=== PATIENT | male | born 1970 | race Caucasian/White ===

== ENCOUNTER 2018-01-07 11:40 | Emergency (ER) | payer BC ==
[2018-01-07 12:07] VITALS: BP 132/62
--- NOTE | 2018-01-07 13:23 | UC ---
Lower Extremity/Ankle HPI - HPI Summary HPI Summary: Pt presents with 3day progressive right great toe pain. pt states has had intermittent ankle pain, pt with great toe pain once pregiously. pt states pain with gentle touch, walking. Pt took Motrin with mild improvement. No fever, chills. No rash. No fever, chills. No trauma. no open wounds. No other compplaints. Pt's medications reviewed this visit - History of Current Complaint Chief Complaint: UCLowerExtremity Stated Complaint: RIGHT FOOT COMPLAINT Time Seen by Provider: 01/07/18 13:15 Hx Obtained From: Patient Onset/Duration: Gradual Onset Severity Initially: Mild Severity Currently: Moderate Pain Intensity: 7 - Allergies/Home Medications Allergies/Adverse Reactions: Allergies Allergy/AdvReac Type Severity Reaction Status Date / Time seasonal Allergy Eyes Uncoded 01/07/18 12:07 Itchy/Swollen/Red/Watery Home Medications: Home Medications Ibuprofen TAB* [Motrin TAB* 800 MG] 800 mg PO Q6H PRN 01/07/18 [History Confirmed 01/07/18] Lisinopril/Hydrochlorothiazide [Zestoretic 20-25 mg-] 1 tab PO DAILY 01/07/18 [ History Confirmed 01/07/18] Loratadine [Claritin 10 MG CAP] 10 mg PO DAILY 01/07/18 [History Confirmed 01/07] PMH/Surg Hx/FS Hx/Imm Hx Previously Healthy: Yes - Surgical History Surgical History: Yes Surgery Procedure, Year, and Place: R hernia repair groin. R ankle fx - Family History Known Family History: Positive: Other - non contributory - Social History Occupation: Employed Full-time Lives: With Family Alcohol Use: Weekly Alcohol Amount: 10-12 Substance Use Type: None Smoking Status (MU): Never Smoked Tobacco Review of Systems Constitutional: Negative Musculoskeletal: Other: - right great toe All Other Systems Reviewed And Are Negative: Yes Physical Exam - Summary Physical Exam Summary: Vital Signs Reviewed: Yes A+Ox3, no distress Eyes: Conjunctiva Clear ENT: Hearing grossly normal neck: supple Respiratory: Positive: No respiratory distress, No accessory muscle use Cardiovascular: skin color reflect adequate perfusion 2+ DP, PT CBT < 2 sec Musculoskeletal Exam: No pain c/t/l/s + flex/ext knee, ankle no pain achilles, tarsals + TTP right great MCP with gentle palpation and movement. Neurological: Positive: Alert, ambulatory without difficulty + gross sensation throughout foot Psychological: Positive: Normal Response To Family Skin: Positive: no rash, no ecchymosis mild erythema and edema right great MCP miimal warmth no red streak Triage Information Reviewed: Yes Vital Signs: Initial Vital Signs Temp 98 F 01/07/18 11:57 Pulse 72 01/07/18 11:57 Resp 18 01/07/18 11:57 BP 132/62 01/07/18 11:57 Pulse Ox 98 01/07/18 11:57 Lower Extremity Course/Dx - Course Course Of Treatment: The enrollee present with progressive right great MCP pain. Pt with mild erythema and edema. Pt with tenderness with genlt palpation. no fluctuance CSM intact. exam and sx c/w gout. Will start pred, indomethacin. PCP f/u. return precautions. crutches. labs. work note - Differential Dx/Diagnosis Provider Diagnoses: gout flare Discharge - Sign-Out/Discharge Documenting (check all that apply): Patient Departure All imaging exams completed and their final reports reviewed: Yes - Discharge Plan Condition: Stable Disposition: HOME Prescriptions: Indomethacin CAP* [Indocin CAP*] 50 mg PO TID PRN #21 cap PRN Reason: foot pain predniSONE [Prednisone 20 MG TAB] 40 mg PO DAILY #8 tablet Patient Education Materials: Low Purine Diet (ED), Gout (ED) Forms: *Work Release Referrals: Chandana Alvarenga MD [Primary Care Provider] - Additional Instructions: - Take indomethacin 3 times a day as prescribed for pain . Take with food. Do NOT take ibuprofen (Advil, Motrin) while taking this medication - Take tylenol every 6 horus for pain - Take prednisone daily as prescribed. Take with food - Use crutches if to help you with walking - It is recommended you use if you are walking with a limp - Elevate your foot to help with swelling and pain - You had blood drawn today - these results will take 1-2 days to come back A member of our care team will call you with abdominal results - Billing Disposition and Condition Condition: STABLE Disposition: Home
[2018-01-07] MEDS ORDERED: predniSONE TAB* 20 MG PO ONE (13:40)
[2018-01-07] MEDS ORDERED: Indomethacin CAP* 25 MG CAP PO ONE (13:40)
[2018-01-07 19:27] LABS: Uric Acid 6.5 mg/dL (4.4-7.6)
== END 2018-01-07 14:07 | disposition home or self-care (01) ==
LOC: UCCORT 11:40
DX: M10.071 Idiopathic gout, right ankle and foot (principal)
CPT/HCPCS: 36415; 80048; 84550; 99203; A9270-GY; G0463; J7512

== ENCOUNTER 2018-12-28 10:29 | Emergency (ER) | payer BC ==
[2018-12-28] MEDS ORDERED: Morphine 4 MG/ML VIAL (1 ml) 4 MG/ML VIAL IV ONE (12:15)
[2018-12-28] MEDS ORDERED: diPHENhydraMINE IV* 50 MG/ML 1 ml VIAL (BENADRYL) IV ONE (12:15)
[2018-12-28] MEDS ORDERED: NS 0.9% 1000 ML** 1,000 ML IV ONE (12:15)
[2018-12-28] MEDS ORDERED: Metoclopramide IV* 5 MG/ML 2 ML VIAL IV ONE (12:15)
--- NOTE | 2018-12-28 12:16 | ED ---
Headache - HPI Summary HPI Summary: The patient is a 48 y/o M presenting to [facility] accompanied by with a chief complaint of headache with visual changes worsening over the last week. He reports that hes had headaches for years, but recently they have been lasting for 3-4 hours and are primarily located in either the occipital or frontal head. He is also now experiencing squiggly lines and blurred vision. Currently , his symptoms are rated 7/10 in severity. He has not seen an aba therapist, but he does not have a history of wearing glasses. PMHx: HTN, kidney infarction , kidney stones. FHx: HTN, HLD, kidney stones. Nonsmoker, weekly EtOH, no substance use. Medications reviewed. Allergies noted. - History Of Current Complaint Chief Complaint: EDHeadache Stated Complaint: SQUIGGLY LINES IN VISION/HEADACHE/DIZZY PER PT Time Seen by Provider: 12/28/18 12:07 Hx Obtained From: Patient Onset/Duration: Gradual Onset, Started hours ago, Still Present Initially Headache Was: Moderate Currently Pain Is: Current Pain Scale(0-10)= - 7 Timing: Hours - 3-4 Character: Throbbing Location of Headache: Frontal, Occipital Aggravating Factor: Nothing Allevating Factors: Nothing Associated Signs And Symptoms: Visual Changes - blurred vision, "squiggly lines " - Allergies/Home Medications Allergies/Adverse Reactions: Allergies Allergy/AdvReac Type Severity Reaction Status Date / Time seasonal Allergy Eyes Uncoded 04/26/18 15:56 Itchy/Swollen/Red/Watery PMH/Surg Hx/FS Hx/Imm Hx Endocrine/Hematology History: Denies: Hx Diabetes, Hx Thyroid Disease Cardiovascular History: Reports: Hx Hypertension Denies: Hx Hypercholesterolemia Respiratory History: Denies: Hx Asthma, Hx Chronic Obstructive Pulmonary Disease (COPD) GI History: Denies: Hx Ulcer History: Reports: Hx Kidney Stones, Hx Renal Disease - R renal infarct - Surgical History Surgical History: Yes Surgery Procedure, Year, and Place: R hernia repair groin. R ankle fx Infectious Disease History: No Infectious Disease History: Denies: Hx Hepatitis, Hx Human Immunodeficiency Virus (HIV), Traveled Outside the [place] in Last 30 Days - Family History Known Family History: Positive: Hypertension, Other - HLD, kidney stones - Social History Alcohol Use: Weekly Alcohol Amount: 10-12 Hx Substance Use: No Substance Use Type: Reports: None Hx Tobacco Use: No Smoking Status (MU): Never Smoked Tobacco Review of Systems Positive: Blurred Vision - with "squiggly lines" Positive: Headache - occipital, frontal All Other Systems Reviewed And Are Negative: Yes Physical Exam - Summary Physical Exam Summary: VITAL SIGNS: Reviewed. GENERAL: Patient is a well-developed and nourished male who is lying comfortable in the stretcher. Patient is not in any acute respiratory distress. HEAD AND FACE: No signs of trauma. No ecchymosis, hematomas or skull depressions. No sinus tenderness. EYES: PERRLA, EOMI x 2, No injected conjunctiva, no nystagmus. Visual acuity 20/ 20 bilaterally. EARS: Hearing grossly intact. Ear canals and tympanic membranes are within normal limits. MOUTH: Oropharynx within normal limits. NECK: Supple, trachea is midline, no adenopathy, no JVD, no carotid bruit, no c- spine tenderness, neck with full ROM. CHEST: Symmetric, no tenderness at palpation. LUNGS: Clear to auscultation bilaterally. No wheezing or crackles. CVS: Regular rate and rhythm, S1 and S2 present, no murmurs or gallops appreciated. ABDOMEN: Soft, non-tender. No signs of distention. No rebound, no guarding, and no masses palpated. Bowel sounds are normal. EXTREMITIES: FROM in all major joints, no edema, no cyanosis or clubbing. NEURO: Alert and oriented x 3. No acute neurological deficits. Speech is normal and follows commands. SKIN: Dry and warm. GCS: 15. Triage Information Reviewed: Yes Vital Signs On Initial Exam: Initial Vitals Temp Pulse Resp BP Pulse Ox 97.5 F 65 16 131/90 98 12/28/18 10:31 12/28/18 10:31 12/28/18 10:31 12/28/18 10:31 12/28/18 10:31 Vital Signs Reviewed: Yes - [place] Coma Scale Best Eye Response: 4 - Spontaneous Best Motor Response: 6 - Obeys Commands Best Verbal Response: 5 - Oriented Coma Scale Total: 15 Procedures - Sedation Patient Received Moderate/Deep Sedation with Procedure: No Diagnostics - Vital Signs Vital Signs Temp Pulse Resp BP Pulse Ox 12/28/18 10:31 97.5 F 65 16 131/90 98 - Laboratory Result Diagrams: 12/28/18 12:32 10/07/19 12:32 Lab Statement: Any lab studies that have been ordered have been reviewed, and results considered in the medical decision making process. - CT Brain CT CT Interpretation Completed By: Radiologist Summary of CT Findings: Impression: 1. No acute intracranial abnormality. ED physician has reviewed this report. Re-Evaluation - Re-Evaluation First Eval Re-Evaluation Time: 14:30 Change: Improved Comment: Visual acuity is 20/20. Pain has improved. We discussed all rseults and plan for discharge home. Headache Course/Dx - Course Assessment/Plan: Patient is a 48 y/o M with chief complaint of occipital and frontal headaches accompanied by blurred vision with "squiggly lines" gradually worsening. Visual acuity 20/20 bilaterally. Blood work without any significant abnormality except for carbon dioxide of 33 and glucose of 105. Head CT impression: No acute intracranial abnormality. In the ED course, the patients symptoms started after he developed a headache. The patient reports that he thinks that he has migraine headaches. However, he hasnt been diagnosed with migraine headaches. The patient was given IV fluids, Reglan, Benadryl, and morphine for the pain and his symptoms resolved. At this point, the patient reports that his symptoms have resolved, and he no longer has a headache or blurred vision. However, the patient was recommended to follow with the primary care physician and also follow up with an aba therapist. The patient understands and agrees. At this point, I discussed all the findings and test results with the patient. He was instructed to return to the emergency room immediately if any of the symptoms return or worsen. Patient understands and agrees. Neurological exam before discharge: Patient is alert and oriented x 3. No acute neurological deficits. Patient's vital signs are stable. Patient is to follow up with PCP in the next 2 3 days. They understand and agree. Plan of care was discussed with the patient and patient understands and agrees with the plan of care. All questions were answered at patient satisfaction. There were no further complaints or concerns. - Diagnoses Provider Diagnoses: Headache, Visual changes Discharge ED - Sign-Out/Discharge Documenting (check all that apply): Patient Departure - Patient will be discharged home. - Discharge Plan Condition: Stable Disposition: HOME Patient Education Materials: Migraine Headache (ED) Forms: *Work Release Referrals: Chandana Alvarenga MD [Primary Care Provider] - 3 Days Pk Polanco MD [Medical Doctor] - 3 Days Additional Instructions: Follow up with ophthalmology in 2-3 days. Follow up with your primary acre provider in 2-3 days. Return to the emergency department for any new or worsening symptoms. - Billing Disposition and Condition Condition: STABLE Disposition: Home - Attestation Statements Document Initiated by Kasi: Yes Documenting Scribe: Vijaya Carlisle Provider For Whom Kasi is Documenting (Include Credential): Dr. Arnulfo Rosario MD Scribe Attestation: Vijaya Garcia scribed for Dr. Arnulfo Rosario MD on 12/29/18 at 1844. Scribe Documentation Reviewed: Yes Provider Attestation: The documentation as recorded by the Vijaya grey accurately reflects the service I personally performed and the decisions made by me, Dr. Arnulfo Rosario MD Status of Scribe Document: Viewed
[2018-12-28 12:42] LABS: ABS Eosinophils 0.2 10^3/ul (0-0.6); ABS Lymphocytes 1.2 10^3/ul (1.0-4.8); ABS Monocytes 0.5 10^3/ul (0-0.8); ABS Neutrophils 3.4 10^3/ul (1.5-7.7); Eosinophil % 4.6 %; Hematocrit 48 % (42-52); Hemoglobin 16.9 g/dL (14.0-18.0); Lymphocyte % 22.2 %; Mean Corpuscular HGB Conc 35 g/dL (31-36); Mean Corpuscular Hemoglobin 31 pg (27-31); Mean Corpuscular Volume 89 fL (80-94); Mean Platelet Volume 7.8 fL (7.4-10.4); Platelet Count 220 10^3/uL (150-450); Red Blood Count 5.44 10^6 /uL (4.18-5.48); Red Cell Distribution Width 13 % (10-15); White Blood Count 5.4 10^3/uL (3.5-10.8)
[2018-12-28 13:03] LABS: Albumin 4.6 g/dL (3.2-5.2); Albumin/Globulin Ratio 1.8 (1-3); Calcium 9.5 mg/dL (8.6-10.3); EGFR African American 88.3 (>60); Globulin 2.6 g/dL (2-4); Potassium 4.2 mmol/L (3.5-5.0); Total Bilirubin 0.6 mg/dL (0.2-1.0); Total Protein 7.2 g/dL (6.4-8.9)
[2018-12-28 14:30] LABS: Erythrocyte Sed Rate 1 mm/Hr (0-14)
[2018-12-28 14:37] VITALS: BP 116/70
== END 2018-12-28 14:34 | disposition home or self-care (01) ==
LOC: ED 10:29
DX: R51 Headache (principal); H53.8 Other visual disturbances; I10 Essential (primary) hypertension
CPT/HCPCS: 36415; 70450; 80053; 82375; 85025; 85652; 96361; 96374; 96375; 99282; J1200; J2270; J2765